=== PATIENT | female | born 1950 | race Caucasian/White ===

== ENCOUNTER → 2023-08-25 14:02 | Outpatient (REF) | payer MEDICARE, OTHER, SELFPAY | LOC: HWRAD 14:02 | PROVIDERS: ATTENDING PHYSICIAN Internal Medicine Critical Care Medicine; FAMILY PHYSICIAN Internal Medicine | DX: R91.1 Solitary pulmonary nodule (principal) | CPT/HCPCS: 71250 ==

== ENCOUNTER 2023-12-09 05:03 | Inpatient (IN) | payer MEDICARE, OTHER, SELFPAY ==
[2023-11-13 08:50] VITALS: BMI 24.9
[2023-11-13 09:32] LABS: % Basophils 0.8 % (0-2); % Immature Granulocytes 0.3 % (0-0.5); % Lymphocytes 34.3 % (20.5-51.1); % Monocytes 7.1 % (1.7-9.3); % Neutrophils 53.5 % (42.2-75.2); Absolute Eosinophils 0.1 10^3/uL (0-0.7); Absolute Lymphocytes 1.2 10^3/uL (1.2-3.4); Absolute Monocytes 0.3 10^3/uL (0.1-0.6); Absolute Neutrophils 1.9 10^3/uL (1.4-6.5); Hematocrit 36.6 % (37.0-47.0); Hemoglobin 12.3 g/dL (12.0-16.0); Mean Corp Hgb Conc. 33.6 g/dL (33.0-37.0); Mean Corpuscular Hgb 30.1 pg (27.0-31.0); Mean Corpuscular Volume 89.7 fL (81.0-99.0); Mean Platelet Volume 9.7 fL (7.4-10.4); Nucleated Red Blood Cells % 0 %; Platelet Count 287 10^3/uL (130-400); Red Blood Cell Count 4.08 10^6/uL (4.20-5.40); Red Cell Dist. Width 14.1 % (11.5-14.5); White Blood Cell Count 3.5 10^3/uL (4.8-10.8)
[2023-11-13 09:40] LABS: Urine Albumin Negative (Neg - Trace); Urine Bilirubin Negative (Negative); Urine Character Clear (Clear); Urine Color Yellow; Urine Glucose Negative (Negative); Urine Ketone Negative (Negative); Urine Leukocyte Negative (Negative); Urine Nitrite Negative (Negative); Urine Occult Blood Negative (Negative); Urine Specific Gravity 1.005 (<1.030); Urine Urobilinogen Negative (Neg - 1+)
[2023-11-13 09:48] LABS: INR 0.98; PT 12.8 Sec (11.4-14.6)
[2023-11-13 09:49] LABS: APTT 27.4 Sec (23.4-35.0)
[2023-11-13 10:26] LABS: Glycohemoglobin (HgbA1c) 5.3 % (4.0-5.6)
[2023-11-13 10:31] LABS: ALT (SGPT) 23 U/L (0-35); AST (SGOT) 26 U/L (14-36); Albumin 4.4 g/dl (3.5-5.0); Alkaline Phosphatase 110 U/L (38-126); Blood Urea Nitrogen 19 mg/dl (7-17); Calcium 10.1 mg/dl (8.4-10.2); Carbon Dioxide 27 mmol/L (22-30); Chloride 105 mmol/L (98-107); Direct Bilirubin 0.1 mg/dl (0.0-0.4); Estimated Creatinine Clearance 63 ml/min; Glucose 101 mg/dl (70-99); Potassium 4.3 mmol/L (3.5-5.1); Sodium 140 mmol/L (135-145); Total Bilirubin 0.3 mg/dl (0.2-1.3); Total Protein 6.6 g/dl (6.3-8.2); eGFR > 60.00
--- NOTE | 2023-11-13 10:50 | CM ---
CM met w/ patient during PATs for planned CT Surgery, 12/08.
Pt. resides alone in a private 1 story apartment. There are no steps to enter the home. Functionally, patient is indep. at baseline w/ ADLs, mobility without the use of any assisted device.
Reviewed pre and post op routines.
Soap, shower instructions and Lung booklet provided/ reviewed.
Reviewed post op restrictions to include lifting and driving restrictions.
Plan for CT Surgery 12/08.
Anticipated DC plan is for home with CT Transitional Care RN.
CM to follow.
[2023-12-09] VITALS (13 sets, daily range): BP systolic 106–149; BP diastolic 62–96; BMI 25.0
--- NOTE | 2023-12-09 06:28 | W.CVOR.SURPR ---
CVOR Surgeon Immed Pre Op
-
I have examined this patient prior to performance of the scheduled procedure.
The patient's condition is unchanged from the time of the dictated/written History and
Physical and the patient is able to undergo the scheduled procedure.
RATS WILLI Lingular Segmentectomy Possible Lobectomy with LN Dissection
[2023-12-09 08:07] LABS: Urine Albumin Negative (Neg - Trace); Urine Bilirubin Negative (Negative); Urine Glucose Negative (Negative); Urine Ketone Negative (Negative); Urine Leukocyte Negative (Negative); Urine Nitrite Negative (Negative); Urine Occult Blood Negative (Negative); Urine Urobilinogen Negative (Neg - 1+)
[2023-12-09 08:10] LABS: Urine Character Clear (Clear); Urine Color Yellow
--- NOTE | 2023-12-09 11:37 | W.PN.CT.SURG ---
CT Surgery Operative Note
-
THORACIC SURGERY OPERATIVE REPORT
Preoperative Diagnosis: WILLI Ground Glass Opacity
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
Procedure(s) Performed:
1. Robotic Assisted Thoracic Surgery (RATS) Left Upper Lobe Lingular Segmentectomy
2. Radical Lymph Node Dissection
3. Additional Margin of Staple Line
4. Intercostal Nerve Block (Bupivacaine mixture to intercostal spaces )
Date of Surgery: 12/09/23
Comorbidities:
1. WILLI Ground Glass Opacity
2. WILLI Cancer
3. Cardiac Murmur
4. Fibromyalgia
5. Basal Cell Carcinoma
6. Reynaud's Disease
7. Hiatal Hernia
8. GERD/Dysphagia
9. Trigeminal Neuralgia
10. DANDRE
11. Former Tobacco Abuser
Attending Surgeon: Luis Alfredo Gar MD, MS
Assistants: Bárbara Santana PA-C (present and necessary to family practice physician assistant, exchanging robotic instruments, retraction, suction, exposure, suture management, and wound closure under my direction)
Anesthesiology: Demetrio Jimenez MD and Shimon Finn CRNA
Scrub and Circulating RNs: Shobha Dill, RN, Juanito Adams, KARRIE
Anesthesia: Dual Lumen GETA
EBL: 100 cc
Products: None
Indication(s) for Procedures: This is a 72-year-old female with a groundglass opacity that was enlarging on serial imaging studies. It is concerning for possible malignancy. She underwent attempted endoluminal bronchoscopy, robotic assisted
however results were inconclusive. Due to the location of the mass, she was referred for thoracic surgery evaluation for possible diagnostic and therapeutic segmentectomy.
Findings: Overall lung tissue quality was acceptable, she had a nearly complete fissure between the left upper and lower lobes. There were no obvious intrathoracic lesions concerning for metachronous disease. The lingular segment was isolated and
revealed that there were 2 large branches feeding the segment S4 and S5 as well as a smaller branch more cephalad. The bronchus to the lingular segment was identified and test clamped revealing unobstructed flow to the remaining apical left upper
lobe segment and left lower lobe. After dividing the arterial supply to the lingular segment, ICG was given and firefly was used to visualize the perfusion lines. This in conjunction with the aeration lines, marked out the ligament or segment.
Intraoperative frozen section was performed and revealed possible bronchioloalveolar carcinoma, well-differentiated. Due to this and a close margin [although negative] additional margin was taken of approximate 1.5 to 2 cm with ink marking the
tumor side. Lymph nodes were taken sequentially as listed below. The raw staple line was reinforced with CoSeal. There was minimal air leak at the inclusion the case once extubated and good inflation of both the left upper and left lower lobe.
There is no significant loss of tidal volume while ventilated.
Specimen(s):
Station 9, x 2 nodes
Station 10, x 1 nodes
Station 11, x 1 nodes
Station 5, x 3 nodes
Station 6, x 2 nodes
Lingular Segment 4/5 of the left upper lobe
Additional margin of the staple line, blue arteaga the tumor site
Description of Procedure: The patient was taken to the operating room. Induction via general anesthesia with endotracheal intubation was performed and peripheral venous access and arterial monitoring were inserted. Their identity and procedure to be
performed were verified and they were positioned with the left side up on the operating table. The patient was then prepped and draped in a sterile fashion. A preoperative time-out was performed with all members of the team present. A Veress needle
was used to insufflate the chest after isolating the lung. An 8 mm port was placed in the midaxillary line at approximately the eighth intercostal space and confirmed to be intrathoracic without significant pulmonary injury. The chest was surveyed
for any evidence of metastatic disease. Patient tolerate insufflation without complication. 2 additional 12 mm trocars were placed on either side under camera guidance and a third 8 mm trocar was placed along the back. A 12 mm shipping assistant port was
placed in the 11th intercostal space above the insertion of the diaphragm. An intercostal nerve block was performed at intercostal spaces 5 through 8.
The thoracic cavity was inspected for evidence of metastatic disease. None was observed. We started with mobilization of the inferior pulmonary ligament. We worked our way clockwise dissecting out the hilum and harvest any lymph nodes identified.
At this point I dissected through the fissure tracing the basilar pulmonary artery. I identified the lingular segmental arterial supply and sequentially divided them with white load staplers. The pulmonary vein leading the lingular segment was
isolated and divided with a white load stapler. This left the remaining lingular bronchiole segment. This was divided with a green load stapler after performing a test clamp revealing undetected flow induration to the remaining apical segment of
the left upper lobe and remaining left lower lobe. At this point ICG was infused and under firefly guidance I was able to identify the perfusion lines of the lingular segment which was marked with bipolar cautery. Multiple loads of green staple
fires were performed marching along this line erring on the side of the needed remaining segment until the specimen was free. It was placed into a large specimen bag and extracted from the chest cavity and sent for intraoperative frozen section.
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 Although the margin was negative it was close within several millimeters and so an additional margin the staple line was taken of approximately 2
cm. Additional lymph nodes were taken as listed above. CoSeal was used to reinforce the staple lines and hilum. A single chest tube was placed over the apex and secured. After confirming hemostasis, the lung was fully inflated and all ports were
removed. Incisions were closed in 3 layers including the fascia, dermal, and epidermis. Additional local anesthesia was injected into all incision sites. The skin wound was cleansed and sealed with Dermabond glue.
All instrument, sponge, and needle counts were confirmed to be correct x 2 at the end of the operation. The patient was transferred to the cardiac intensive care unit extubated in critical but stable condition.
I, Dr. Luis Alfredo Gar, was present, scrubbed for, and performed all critical elements of this procedure.
Luis Alfredo Gar MD, MS
Cardiothoracic Surgeon
[facility]
This operative dictation was created using the [employer] dictation system. Please excuse any grammatical, typographical, or 'sound alike' errors
--- NOTE | 2023-12-09 12:20 | CON.INTV ---
Consultation
Consultation Request
Date/Time Consultation Requested: 12/09/2023
Date/Time Consultation Performed: 12/09/2023 - 1202
Requesting Provider: Dr. Gar
Performing Provider: Dr. Hernandez
Reason for Consultation: post-op WILLI RATS segmentectomy
Medical History
-
Chief Complaint: Elective WILLI resection
History of Present Illness:
72-year-old female former tobacco smoker with [id number]-odpr history (quit 1988) with a past medical history of multiple pulmonary nodules, herniated disc, history of basal cell carcinoma, mild DANDRE intolerant to CPAP in the past s/p discontinuation
(uses oral guard), shortness of breath on Spiriva (spirometry/PFT negative for obstructive lung disease), history of Raynaud's disease, history of pneumonia, history of PVCs, history of RLL TERESA via bronchoscopy in March 2023, nephrolithiasis,
hiatal hernia, GERD, and deviated septum s/p rhinoplasty who presents for left upper lobe robotic assisted segmentectomy. Patient follows with us at [facility] office with Dr. Katz, last office visit on 10/28/2023. Patient follows for multiple lung
nodules including a left upper lobe groundglass opacity, and a 8mm RLL nodule s/p robotic bronchoscopy on 03/23/2023 with TBNA + BAL of WILLI negative for malignancy, and RLL brushing and BAL negative as well for malignancy. Station 7 EBUS negative
for malignancy, however RLL BAL AFB Cx showed TERESA - no treatment started. She continued to follow-up with [facility] interventional pulmonology and underwent repeat biopsy which also was non-diagnostic. Patient then referred to cardiothoracic surgery
here at for resection. Last spirometry done on 09/08/2023 that was within normal limits without any restriction or obstructive defect (FEV1/FVC: 75 (99% predicted) with FVC: 89% / 2.22 L). Last full PFT in December 2022 showing significant
improvement in the small lung green, borderline bronchodilator response, with normal gas exchange capacity and no restriction or obstruction seen. Patient saw Dr. Gar in the office on 11/02/2021 for and surgical resection of WILLI was discussed
including its benefits versus risks. Patient agreed to procedure and today underwent robotic assisted thoracic surgery with left upper lobe lingular segmentectomy, with radical lymph node dissection. EBL was 100 cc, and patient was transferred to
the CVICU postoperatively with critical care services consulted for additional management/recommendations.
When I saw the patient she was in bed, in no acute distress with family members including daughter at bedside. Patient saturating 96% on room air, heart rate 76 and BP 144/65. Left pleural chest tube on waterseal with level 1�2 airleak only upon
strong expiration. She is tired, otherwise denies any SOB at rest, abdominal pain, nausea, fevers or chills.
PMHx: Left upper lobe groundglass opacity, pleurisy, glaucoma, cataracts, heart murmur, history of plantar fasciitis, Mian syndrome, right adrenal gland benign tumor, history of herpes, herniated disc, fibromyalgia, history of basal cell
carcinoma, history of pneumonia, spinal stenosis, right rotator and bicep tear, right Achilles tear, history of Raynaud's phenomenon, hair loss, kidney stones, history of syncope, hiatal hernia, GERD, vascular necrosis involving left shoulder/left
hip, history of trigeminal neuralgia, history of DANDRE (mild) not on CPAP, deviated septum s/p rhinoplasty
PSHx: Tubal ligation, rhinoplasty, exploratory surgery due to lump in jaw (1981), breast biopsy, hysteroscopy, trigger finger, bunionectomy, cholecystectomy, right rotator and right bicep tear surgery, cataract surgery, bilateral hip replacements,
tonsillectomy, endoscopy with Botox injection for motility disorder, lumbar spinal steroid injections
Past Medical History
Past Medical History: Other (Above as per HPI)
Past Surgical History: Other (Above as per HPI)
Social History
Tobacco: Former Smoker (1 PPD x 22 years, quit in 1988)
Alcohol: Occasional
Drug: None
Personal: Single
Living: Other (Condominium)
Employment: Employed (We will stay)
Environmental Exposures: No pets, hot tub or known mold exposure
Family History
Family History: CAD (Father), Cancer (Father: Prostate cancer; mother: Breast cancer, pancreatic cancer; Sister: History of non-melanoma skin cancer) and Other (Father of stroke/A-fib at age 90)
Allergies / Home Medications
Allergies
Allergy/AdvReac Type Severity Reaction Status Date / Time
acetaminophen [From Percocet] Allergy itching/diz Verified 11/09/23 13:32
ziness
díaz Allergy eyes Verified 11/09/23 13:32
water,
breathing
difficulty
gabapentin Allergy Tongue Verified 11/09/23 13:32
Swelling;
nausea
oxycodone [From Percocet] Allergy itching/diz Verified 11/09/23 13:32
ziness
perfume Allergy eyes Verified 11/09/23 13:32
water,
breathing
difficulty
pregabalin [From Lyrica] Allergy Unknown Verified 11/09/23 13:32
simvastatin Allergy numbness Verified 11/09/23 13:32
to arm
Home Medications
�Medication �Instructions �Recorded �Confirmed �Last Taken �Type
Centrex Multivitamin 1 tab PO DAILY 03/23/23 12/09/23 12/08/23 19:00 History
Immune Defense 1 tab PO DAILY 03/23/23 12/09/23 12/02/23 19:00 History
Nutrafol 1 dose PO DAILY 03/23/23 12/09/23 12/08/23 19:00 History
milnacipran 50 mg tablet (Savella) 50 mg PO DAILY 03/23/23 12/09/23 12/08/23 19:00 History
tiotropium bromide 18 mcg capsule 1 cap inhalation QPM 03/23/23 12/09/23 12/08/23 19:00 History
with inhalation device (Spiriva
with HandiHaler)
valacyclovir 500 mg tablet 500 mg PO QPM 03/23/23 12/09/23 12/02/23 History
(Valtrex)
cetirizine 10 mg tablet (Zyrtec) 10 mg PO DAILY 11/09/23 12/09/23 12/08/23 08:00 History
omeprazole 20 mg tablet,delayed 20 mg PO DAILY 11/09/23 12/09/23 12/08/23 08:00 History
release
Lyposomic Vit C 1 unit PO Q48H 11/11/23 12/09/23 12/07/23 08:00 History
Medical Marijuana 1 unit PO PRN PRN pain 11/11/23 12/09/23 12/23/22 History
Saccharomyces boulardii 250 mg 250 mg PO DAILY 11/11/23 12/09/23 12/02/23 History
capsule (Florastor)
ascorbic acid 1,000 1 ea PO Q48H 11/11/23 12/09/23 12/08/23 08:00 History
qs-utglvxyjectt-oprcxymn powder
effervescent pack (Emergen-C)
rosuvastatin 20 mg tablet 20 mg PO DAILY 11/11/23 12/09/23 11/27/23 History
Review of Systems
-
History Source: Patient
All other systems: Negative unless noted
Vitals / Labs / Diagnostic Testing
Vital Signs
Temp Pulse Resp BP Pulse Ox
97.6 F 81 16 149/77 99
12/09/23 05:53 12/09/23 05:53 12/09/23 05:53 12/09/23 05:53 12/09/23 05:53
Lab Data
11/13/23 09:02
11/13/23 09:02
Diagnostic Testing:
Physical Exam
-
HEENT: Normocephalic, Anicteric and Other (ETT in place)
Cardiovascular: S1/S2 and Peripheral Edema (Negative)
Respiratory: Wheeze (Negative), Rales (L-hemithorax), Rhonchi (Negative) and Non-Labored Respirations
GI: Soft, Non Distended, Non Tender and Normal Bowel Sounds
Neurology: Awake, Alert, Tremors (negative) and Other (drowsy but answering my questions appropriately)
Skin: Warm and Dry
General: Respiratory Distress (Negative), Comfortable, Fever (Negative) and Chills (Negative)
Assessment
-
Assessment: 72-year-old female former tobacco smoker with 45-dpjk-lhgg history (quit 1988) with a past medical history of multiple pulmonary nodules, herniated disc, history of basal cell carcinoma, mild DANDRE intolerant to CPAP in the past s/p
discontinuation (uses oral guard), shortness of breath on Spiriva (spirometry/PFT negative for obstructive lung disease), history of Raynaud's disease, history of pneumonia, history of PVCs, history of RLL TERESA via bronchoscopy in March 2023,
nephrolithiasis, hiatal hernia, GERD, and deviated septum s/p rhinoplasty who presents for left upper lobe robotic assisted segmentectomy. Patient follows with us at [facility] office with Dr. Katz, last office visit on 10/28/2023. Patient follows for
multiple lung nodules including a left upper lobe groundglass opacity, and a 8mm RLL nodule s/p robotic bronchoscopy on 03/23/2023 with TBNA + BAL of WILLI negative for malignancy, and RLL brushing and BAL negative as well for malignancy. Station 7
EBUS negative for malignancy, however RLL BAL AFB Cx showed TERESA - no treatment started. She continued to follow-up with [facility] and underwent repeat biopsy which also was non-diagnostic. Patient then referred to
cardiothoracic surgery here at for resection. Last spirometry done on 09/08/2023 that was within normal limits without any restriction or obstructive defect (FEV1/FVC: 75 (99% predicted) with FVC: 89% / 2.22 L). Last full PFT in December 2022
showing significant improvement in the small lung green, borderline bronchodilator response, with normal gas exchange capacity and no restriction or obstruction seen. Patient saw Dr. Gar in the office on 11/02/2021 for and surgical resection of WILLI
was discussed including its benefits versus risks. Patient agreed to procedure and today underwent robotic assisted thoracic surgery with left upper lobe lingular segmentectomy, with radical lymph node dissection. EBL was 100 cc, and patient was
transferred to the CVICU postoperatively with critical care services consulted for additional management/recommendations.
Chronic conditions DISCOVERY MANAGER: Left upper lobe groundglass opacity/multiple lung nodules, pleurisy, glaucoma, cataracts, heart murmur, history of plantar fasciitis, Conde syndrome, right adrenal gland benign tumor, history of herpes, herniated disc,
fibromyalgia, history of basal cell carcinoma, history of pneumonia, spinal stenosis, right rotator and bicep tear, right Achilles tear, history of Raynaud's phenomenon, hair loss, kidney stones, history of syncope, hiatal hernia, GERD, vascular
necrosis involving left shoulder/left hip, history of trigeminal neuralgia, history of DANDRE (mild) not on CPAP, deviated septum s/p rhinoplasty
Impression:
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
#Former tobacco smoker (16-[id number]-[id number] history, quit in 1988)
#Abnormal PFT with marked improvement in small lung green and borderline significant bronchodilator response, suspicious for reactive airway disease vs asthma (DLco: 89%; DLco/VA: 94%)
#Hx of RLL TERESA (03/2023)
#Leukopenia
#History of mild DANDRE intolerant to CPAP (discontinued, now on oral guard)
#Chronic dyspnea on Spiriva (significant bronchodilator response of small airway seen on PFTs, without obstructive lung defect seen, suspicious for RAD vs asthma)
#History of deviated septum s/p rhinoplasty
Plan:
Patient was already extubated by the time she reached the CVICU
Maintain SpO2 >88-94%
prn nebulized bronchodilators
Encourage incentive spirometer use
Continue with Spiriva with prn albuterol for SOB/wheezing
Maintain MAP>65
Replete electrolytes with K>4, Mg>2
Monitor chest tube output (left pleural - currently attached to CWS)
Monitor hemoglobin
Monitor platelet count and coags
Transfuse blood product if needed to keep Hb>7g/dL and plt>50k (give her post-operative status)
CT surgery managing chest tube
Monitor blood sugar to maintain euglycemia with goal BG 140-180
Insulin SQ supplementation as needed to maintain BG goal as above
Aspiration precautions
DVT prophylaxis
Early nutrition
Early mobilization
Patient follows with Dr. Katz as an outpatient with last visit on 10/28/2023. We will assure that patient sees Dr. Katz again as an outpatient for follow up.
Continue CVICU status in this post-operative patient. Once patient downgraded to CVICU�telemetry, Aircraft Body Repairer/Pulmonary service will sign off at that time. Thank you for allowing us to be involved in the care of this patient.
Total time spent today was 75 minutes for this encounter. Time includes reviewing laboratory test/imaging results, reviewing pertinent medical records, obtaining and reviewing medical history, performing an appropriate exam, ordering medications,
tests and procedures. Time also includes documentation of this encounter, coordinating patient care and communicating with other healthcare professionals. Total time does not include separately billed tests performed on this date of service.
[2023-12-09] MEDS: DILAUDID 0.5 MG IV (12:22)
[2023-12-09] MEDS: ANCEF 10 IV ×2 (13:28)
[2023-12-09] MEDS: TORADOL 15 MG IV (13:34)
[2023-12-09] MEDS: LOPRESSOR 12.5 MG PO ×2 (13:36→20:08)
--- NOTE | 2023-12-09 13:52 | PTCARENOTE ---
Received pt from PACU, VSS, Pt is AAOx3, RASS 0; NSR, B/P 140-160/60-70's, HR 70's, pulses palpable on all extremities, - edema; 4L NC, Resp 16, P/O 100% RA, lungs clear bilaterally, - lungs sounds WILLI, C/T L posterior to water seal, tidaling noted.
no crepitus, dressing C/D/I, I/S encouraged, + B/S throughout, abdomen soft, non-tender. three incision L anterior chest, surgical glue COLE; R rad A-line, 20g R AC, 18g L anterior forearm, plan of care discussed with pt including use of I/S
re-enforced.
[2023-12-09] MEDS: ULTRAM 50 MG PO (14:58)
[2023-12-09] MEDS: ANCEF 5 IV ×2 (15:23→21:44)
[2023-12-09] MEDS: TYLENOL PO (15:32)
--- NOTE | 2023-12-09 16:30 | PTCARENOTE ---
VSS, NSR, T - 98, P -74, R -18, B/P 129/72, P/O/ 96% RA; A-Line d/c'ed, Pt OOB to chair, Nursing assessment unchanged from prior.
[2023-12-09] MEDS: DILAUDID 2 MG PO (16:59)
[2023-12-09] MEDS: HEPARIN 5000 UNITS SC ×2 (17:19→23:24)
[2023-12-09] MEDS: VALTREX 500 MG PO (17:19)
--- NOTE | 2023-12-09 17:45 | PTCARENOTE ---
NSR, VSS, chest tube output WNL; pt voided 425ml of clear yellow urine; Nursing assessment unchanged from prior.
[2023-12-09] MEDS: SPIRIVA RESPIMAT 2.5 MCG 2 PUFF INH (19:20)
[2023-12-09] MEDS: SENOKOT 8.6 MG PO (20:08)
--- NOTE | 2023-12-09 21:00 | PTCARENOTE ---
Assumed care of pt from dayshift RN. Walking rounds completed. Pt AAOx3. SR on the monitor. HR 70s. BP stable. Palpable pulses throughout. No edema. Pt on RA. POX 99%. Posterior left upper back CT C/D/I. CT to water seal. Tidaling present. No
airleak/crepitus noted. Left upper lung sounds diminished. Left anterior chest incisions x3 approximated with surgical adhesive and COLE. Abdomen soft/nontender. +BS. Pt voiding in the bathroom w/o issue. Pt 1x assist out of the chair. PIVx2 C/D/I.
See worklist for full nursing assessment and interventions. Call browne within reach.
[2023-12-09] MEDS: NON-FORMULARY ITEM 50 MG PO (21:43)
[2023-12-09] MEDS: FLEXERIL 5 MG PO (21:44)
[2023-12-09] MEDS: TYLENOL 1000 MG PO (21:44)
--- NOTE | 2023-12-10 | PTCARENOTE ---
No acute changes in assessment. Pt SR on the monitor. HR 70s. BP stable. Pt on RA. POX 99%. Left pleural CT to water seal intact. Output WNL. No airleak/crepitus noted. Tidaling present. Pt repositioned in the chair. No c/o pain at this time. Call
browne within reach.
[2023-12-10 04:51] VITALS: BP 134/72
[2023-12-10] MEDS: ULTRAM 50 MG PO ×2 (04:52→11:43)
[2023-12-10 04:55] VITALS: BMI 25.5
[2023-12-10] MEDS: TYLENOL 1000 MG PO ×2 (05:13→13:34)
[2023-12-10] MEDS: ANCEF 5 IV (05:13)
[2023-12-10 05:15] LABS: Hematocrit 34.3 % (37.0-47.0); Hemoglobin 11.7 g/dL (12.0-16.0); Mean Corp Hgb Conc. 34.1 g/dL (33.0-37.0); Mean Corpuscular Hgb 30.6 pg (27.0-31.0); Mean Corpuscular Volume 89.8 fL (81.0-99.0); Mean Platelet Volume 10.3 fL (7.4-10.4); Platelet Count 245 10^3/uL (130-400); Red Blood Cell Count 3.82 10^6/uL (4.20-5.40); Red Cell Dist. Width 15.7 % (11.5-14.5); White Blood Cell Count 8.9 10^3/uL (4.8-10.8)
--- NOTE | 2023-12-10 05:22 | W.PN.CT ---
Today's Communication / Plan
-
-No issues overnight.
-CT output 215 for 12 hrs./ 275 since OR, no air leak
-maintain CT to waterseal.
-UO 1150 for 12 hrs./ 1575 since OR
-OOB/ISB
Assessment / Plan
-
s/p Robotic Assisted Thoracic Surgery (RATS) Left Upper Lobe Lingular Segmentectomy with Radical Lymph Node Dissection POD#1
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
-WILLI nodule
-MV prolapse with mild MR
-cushings sydrome s/p adrenal tumor resectin
-PNA
-osteoarthritis s/p b/l hip replacements
-fibromyalgia
-herniated discs
-spinal stenosis
-BCC
-Raynaud's
-GERD/dysphagia
-AVN of L shoulder/hip
-glaucoma
-herpes
Subjective
Procedure
s/p Robotic Assisted Thoracic Surgery (RATS) Left Upper Lobe Lingular Segmentectomy with Radical Lymph Node Dissection on 12/09/[address] Gar
-
Date of Service: December 10, 2023
Objective Data
-
Lab Results
12/10/23 05:02
PT 12.8 Sec (11.4-14.6) 11/13/23 09:02
INR 0.98 11/13/23 09:02
APTT 27.4 Sec (23.4-35.0) 11/13/23 09:02
Vital Signs
Vital Signs
Temp Pulse Resp BP Pulse Ox
97.5 F 75 18 134/72 96
12/10/23 04:51 12/10/23 04:51 12/10/23 04:51 12/10/23 04:51 12/10/23 04:51
CT Intake/Output/Weight
12/09/23 12/09/23 12/10/23
06:59 18:59 06:59
Intake Total 540 / 540
Output Total 480 / 1845 1365 / 1845
Balance 60 / -1305 -1365 / -1305
SaO2: 96
Physical Exam
-
General: AOx3
Cardiovascular: Regular rate & rhythm
Respiratory: Clear
Incision: Clean, Dry and Intact
Extremities: No Edema
--- NOTE | 2023-12-10 05:49 | PTCARENOTE ---
No acute changes in assessment. Pt remains SR on the monitor. HR 70-80s. BP stable. Pt remains on RA. Left pleural CT assessment unchanged from original. Surgical sites stable. Pt assisted out of the chair to the bathroom and then repositioned back
into the chair. Labs drawn and sent. See MAR for pain medication administration. Call browne within reach.
[2023-12-10 06:27] LABS: Blood Urea Nitrogen 13 mg/dl (7-17); Calcium 9.2 mg/dl (8.4-10.2); Carbon Dioxide 28 mmol/L (22-30); Chloride 104 mmol/L (98-107); Estimated Creatinine Clearance 63 ml/min; Glucose 121 mg/dl (70-99); Magnesium 2.3 mg/dl (1.6-2.3); Potassium 4.2 mmol/L (3.5-5.1); Sodium 136 mmol/L (135-145); eGFR > 60.00
--- NOTE | 2023-12-10 06:50 | W.PN.ANS.POP ---
Anesthesia Post Operative
- Anesthesia Post Op Note
Vital Signs Stable-See Nursing Note: Yes
Airway Patent: Yes
Adequate Pain Control: Yes
Change in Mental Status: No
Current Postoperative Nausea & Vomiting: No
Anesthesia Complications: No
General Anesthetic Recall: No
Unplanned Admission: No
Post Op Hydration Adequate: Yes
--- NOTE | 2023-12-10 08:00 | PTCARENOTE ---
Received pt from power and recovery shift engineer RN; pt AAOX3 and resting comfortably in chair; NSR on monitor and VSS; Lungs diminished; IS to 1000; CT x1 to water seal, no air leak and no crepitus noted; positive bowel sounds; pt voiding clear yellow urine; palpable
pulses throughout; no edema noted; all surgical sites C/D/I; see nursing documentation for further details.
[2023-12-10 08:03] VITALS: BP 124/62
[2023-12-10] MEDS: LIDOCAINE 4% PATCH 1 PATCH TOPICAL (08:14)
[2023-12-10] MEDS: ZYRTEC 10 MG PO (08:15)
[2023-12-10] MEDS: SENOKOT 8.6 MG PO (08:15)
[2023-12-10] MEDS: FLEXERIL 5 MG PO (08:15)
[2023-12-10] MEDS: HEPARIN 5000 UNITS SC (08:15)
[2023-12-10] MEDS: LOPRESSOR PO (08:19)
[2023-12-10] MEDS: PROTONIX 40 MG PO (08:20)
--- NOTE | 2023-12-10 09:30 | W.PN.INTV ---
Today's Communication / Plan
Recommendations
Up OOB as tolerated
Pain control
Resume Spiriva w/ prn albuterol
Removal of left-sided chest tube per CT surgery
Outpatient follow-up will be arranged with Dr. Katz, plan for this upcoming April
Patient is being prepared for discharge home today. Appointment Coordinator/Pulmonary service will now sign off. Please reconsult if there are any additional questions/concerns.
Assessment
-
Assessment: 72-year-old female former tobacco smoker with [id number] history (quit 1988) with a past medical history of multiple pulmonary nodules, herniated disc, history of basal cell carcinoma, mild DANDRE intolerant to CPAP in the past s/p
discontinuation (uses oral guard), shortness of breath on Spiriva (spirometry/PFT negative for obstructive lung disease), history of Raynaud's disease, history of pneumonia, history of PVCs, history of RLL TERESA via bronchoscopy in March 2023,
nephrolithiasis, hiatal hernia, GERD, and deviated septum s/p rhinoplasty who presents for left upper lobe robotic assisted segmentectomy. Patient follows with us at [facility] office with Dr. Katz, last office visit on 10/28/2023. Patient follows for
multiple lung nodules including a left upper lobe groundglass opacity, and a 8mm RLL nodule s/p robotic bronchoscopy on 03/23/2023 with TBNA + BAL of WILLI negative for malignancy, and RLL brushing and BAL negative as well for malignancy. Station 7
EBUS negative for malignancy, however RLL BAL AFB Cx showed TERESA - no treatment started. She continued to follow-up with [facility] interventional pulmonology and underwent repeat biopsy which also was non-diagnostic. Patient then referred to
cardiothoracic surgery here at for resection. Last spirometry done on 09/08/2023 that was within normal limits without any restriction or obstructive defect (FEV1/FVC: 75 (99% predicted) with FVC: 89% / 2.22 L). Last full PFT in December 2022
showing significant improvement in the small lung green, borderline bronchodilator response, with normal gas exchange capacity and no restriction or obstruction seen. Patient saw Dr. Gar in the office on 11/02/2021 for and surgical resection of WILLI
was discussed including its benefits versus risks. Patient agreed to procedure and today underwent robotic assisted thoracic surgery with left upper lobe lingular segmentectomy, with radical lymph node dissection. EBL was 100 cc, and patient was
transferred to the CVICU postoperatively with critical care services consulted for additional management/recommendations.
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
fibromyalgia, history of basal cell carcinoma, history of pneumonia, spinal stenosis, right rotator and bicep tear, right Achilles tear, history of Raynaud's phenomenon, hair loss, kidney stones, history of syncope, hiatal hernia, GERD, vascular
necrosis involving left shoulder/left hip, history of trigeminal neuralgia, history of DANDRE (mild) not on CPAP, deviated septum s/p rhinoplasty
Impression:
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
#Former tobacco smoker ([id number] history, quit in 1988)
#Abnormal PFT with marked improvement in small lung green and borderline significant bronchodilator response, suspicious for reactive airway disease vs asthma (DLco: 89%; DLco/VA: 94%)
#Hx of RLL TERESA (03/2023)
#Leukopenia - resolved (her WBC wa slow in November 2023)
#History of mild DANDRE intolerant to CPAP (discontinued, now on oral guard)
#Chronic dyspnea on Spiriva (significant bronchodilator response of small airway seen on PFTs, without obstructive lung defect seen, suspicious for RAD vs asthma)
#History of deviated septum s/p rhinoplasty
Plan:
Patient was already extubated yesterday prior to coming to CVICU
Maintain SpO2 >90-94%
prn nebulized bronchodilators
Encourage incentive spirometer use
Continue with Spiriva with prn albuterol for SOB/wheezing
Maintain MAP>65
Replete electrolytes with K>4, Mg>2
Monitor chest tube output (left pleural - currently attached to CWS - no air leak seen today) -removal of chest tube per CT surgery
Monitor hemoglobin
Monitor platelet count and coags
Transfuse blood product if needed to keep Hb>7g/dL and plt>50k (give her post-operative status)
CT surgery managing chest tube
Monitor blood sugar to maintain euglycemia with goal BG 140-180
Insulin SQ supplementation as needed to maintain BG goal as above
Aspiration precautions
DVT prophylaxis
Early nutrition
Early mobilization
Patient follows with Dr. Katz as an outpatient with last visit on 10/28/2023. We will assure that patient sees Dr. Katz again as an outpatient for follow up, planned for this April.
Patient is being prepared for discharge home today. Appointment Coordinator/Pulmonary service will now sign off. Thank you for allowing us to be involved in the care of this patient. Please reconsult if there are any additional questions/concerns.
Total time spent today was 35 minutes for this encounter. Time includes reviewing laboratory test/imaging results, reviewing pertinent medical records, obtaining and reviewing medical history, performing an appropriate exam, ordering medications,
tests and procedures. Time also includes documentation of this encounter, coordinating patient care and communicating with other healthcare professionals. Total time does not include separately billed tests performed on this date of service.
Subjective Dataa
Subjective Data
Date of Service:
Date of Service: December 10, 2023
Chief Complaint: Appointment Coordinator Follow Up and Pulmonary Follow Up
Subjective:
Patient seen and evaluated today at bedside. Heart rate 89, saturating 98% on room air and breathing comfortably. BP 124/62. Afebrile overnight. Left pleural chest tube in place with no airleak seen even upon expiration or cough. She feels
better today, denies chest pain, headache, SOB, fevers or chills.
Review of Systems
General: Other (Negative unless mentioned above)
Objective Data
Data Reviewed
Vital Signs / I&O / Oxygen:
Vital Signs
Temp Pulse Resp BP Pulse Ox
98.4 F 84 18 134/72 98
12/10/23 08:00 12/10/23 05:30 12/10/23 08:00 12/10/23 04:51 12/10/23 09:10
Intake and Output
12/09/23 12/10/23 12/11/23
06:59 06:59 06:59
Intake Total 540 / 540
Output Total 1845 / 1845 535 / 535
Balance -1305 / -1305 -535 / -535
SaO2 98
Nasal Cannula flow liters per 4
minute
Physical Exam
General: Respiratory Distress (Negative), Comfortable, Chills (Negative) and Sweats (Negative)
HEENT: Normocephalic and Anicteric
Cardiovascular: S1-S2 and Peripheral Edema (Negative)
Respiratory: Wheeze (Negative), Crackles (Mild heard on anterior left hemithorax during inspiration), Non-Labored Respirations and Chest Tube (left pleural x1)
GI: Soft, Non Distended, Non Tender and Normal Bowel Sounds
Neurology: AO x 3 and Tremors (Negative)
Skin: Warm, Dry and Jaundice (Negative)
Labs/Micro/Reports
Lab Data
12/10/23 05:02
12/10/23 05:33
--- NOTE | 2023-12-10 11:19 | CM ---
Chart reviewed. Patient OOB sitting int the chair. Patient requesting therapy dog to visit. Call placed to [employer] and they will let us know when the dog will be in to visit. Patient is independent of ADLS, lives alone in a 1 [address], 0
PETERS[place], 0 DME. Plan is for the patient to return home with CT Transitional RN. CM to follow
[2023-12-10 11:56] VITALS: BP 111/59
--- NOTE | 2023-12-10 12:17 | PTCARENOTE ---
Assessment unchanged; NSR on monitor and VSS; pt resting comfortably in chair and ambulating hallway with RN.
--- NOTE | 2023-12-10 13:38 | W.DCSUMMARY ---
Discharge Summary
Discharge Data
Date of Admission: 12/09/23
Date of Discharge: 12/10/23
-
Pending Results: Yes
Additional Pending Results:
surgical pathology is pending (12/09/23)
Hospital Course
Primary care physician: Sheri Pineda
Outpatient Manager Union: Nadia Katz
Inpatient consultants: MA/fireworks assembly supervisor
Procedures:
1. 12/09/23 robotic assisted Left upper lobe lingular segmentectomy + additional margin resection & radical lymph node dissection by Dr. Luis Alfredo Gar
Primary Diagnosis:
1. 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
Secondary Diagnoses:
1. mitral valve prolapse with mild mitral regurgitation
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
3. history of pneumonia
4. osteoarthritis status post bilateral hip replacements
5. fibromyalgia
6. herniated discs
7. spinal stenosis
8. basal cell carcinoma
9. raynaud's syndrome
10. gastroesophageal reflux disease/dysphagia
11. avascular necrosis of left shoulder/hip
12. glaucoma
13. herpes
HPI: Patient is a 72-year-old female with known left upper lobe mass, being followed by pulmonary, now increased in size with positive FDG uptake on most recent PET/CT. Biopsies earlier this year were nondiagnostic, decision was made to proceed
with mass resection for definitive diagnosis and therapeutic surgery.
Hospital course: She was brought in electively on 12/09/2023 where she went underwent a robotic assisted left upper lobe lingular segmentectomy with additional margin resection as well as radical lymph node dissection by Dr. Luis Alfredo Gar without any
periprocedural complications. She was transferred to PACU recovery, extubated in stable condition. Chest tube was in place without airleak and was converted to water seal shortly after surgery. Arterial line was discontinued subQ heparin was
started for DVT prophylaxis with a presumed diagnosis of bronchioloalveolar carcinoma on frozen section. She remained stable overnight on postop day 1 chest x-ray demonstrates a fully expanded lung with no pneumothorax. No air leak present on her
chest tube, patient is ambulating and chest tube was discontinued midday. She is voiding and pain is well-controlled on oral medication. She was discharged to home with close follow-up with the transitional care nurse for [facility] who
will see her in a few days. She will have a chest x-ray prior to her follow-up visit with Dr. Gar. Full surgical pathology is pending at this time.
Home medication changes: New prescription provided for Flexeril for pain control, and metoprolol tartrate 12.5 mg p.o. twice daily x 30 days for A-fib prophylaxis.
Discharge Plan
-
Patient Disposition: Home (Routine Discharge)
Discharge Diagnosis/Procedures: bronchopleural carcinoma
Condition: Good
Diet: No restrictions
Activity: No strenuous activity
Driving Restrictions: No driving for 2 weeks
Bathing Restrictions: OK to Shower
Others Tests: have chest xray completed prior to visit with Dr. Gar
Wound Care: Keep chest tube dressing intact x24hrs, then OK to shower. cover chest tube dressing area with dry dressings if needed for drainage.
Referrals:
CT Transitional Care Nurse [Outside] (The Cardiothoracic Transitional Care Nurse will call you to set up a visit in 1-2 days.)
Nadia Katz MD [Active] - (Follow up as previously scheduled in April 2024; sooner if needed; please call Pulmonary office if any questions.)
Sheri Pineda MD [Family Provider] -
Luis Alfredo Gar MD [Active] - 12/30/23 1:15 pm
Prescriptions:
New
metoprolol tartrate 25 mg Tablet
12.5 mg PO BID Qty: 30 0RF
Rx Instructions:
x30 days; for afib prophylaxis
acetaminophen 325 mg Tablet
650 mg PO Q6HPRN PRN (Reason: mild pain,headache,temp >101F ) Qty: 0 0RF
sennosides [Senna Laxative] 8.6 mg Tablet
8.6 mg PO BID PRN (Reason: Constipation) Qty: 0 0RF
lidocaine 4 % Adhesive Patch,Medicated
1 patch topical DAILY PRNQty: 0 0RF
cyclobenzaprine 10 mg Tablet
5 mg PO Q8HPRN PRN (Reason: muscle spasm) Qty: 20 0RF
Continued
valacyclovir [Valtrex] 500 mg Tablet
500 mg PO QPM
tiotropium bromide [Spiriva with HandiHaler] 18 mcg Capsule, W/Inhalation Device
1 cap INHALATION QPM
Savella 50 mg Tablet
50 mg PO DAILY
Centrex Multivitamin
1 tab PO DAILY
Nutrafol
1 dose PO DAILY
Immune Defense
1 tab PO DAILY
cetirizine [Zyrtec] 10 mg Tablet
10 mg PO DAILY
omeprazole 20 mg Tablet,Delayed Release (Dr/Ec)
20 mg PO DAILY
rosuvastatin 20 mg Tablet
20 mg PO DAILY
Saccharomyces boulardii [Florastor] 250 mg Capsule
250 mg PO DAILY
Emergen-C 1,000 mg Powder Effervescent In Packet
1 ea PO Q48H
Rx Instructions:
alternating days with Lyposomic Vit C
Medical Marijuana
1 unit PO PRN PRN (Reason: pain)
Rx Instructions:
Capsules, Oil and Lotion - No Vaping
Lyposomic Vit C 1,000 mg packet
1 unit PO Q48H
Rx Instructions:
alternate days from EmergenC
Discharge Orders:
Discharge Patient (As Directed); Ordered 12/10/23
Ordered By: Sarika Price
Care Plan Goals
Care Plan Goals:
Problem: Readiness for enhanced knowledge related to diagnosis and treatment plan
Goal: Understand your diagnosis and treatment plan needs, including medications if applicable.
Instructions: Know your diagnosis, underlying causes and treatment plan options, including medications if applicable. Consult with your health care team to learn about your diagnosis and treatment plan, including medications if applicable.
Discharge Date and Time
Print Language: LITHUANIAN
== END 2023-12-10 15:50 | disposition home or self-care (01) | DRG 164 ==
LOC: CVICU 05:03
PROVIDERS: Physician Assistant Medical; ADMITTING PHYSICIAN Thoracic Surgery (Cardiothoracic Vascular Surgery); FAMILY PHYSICIAN Internal Medicine; OTHER PHYSICIAN Internal Medicine Critical Care Medicine
PROC: 07T74ZZ Resection of Thorax Lymphatic, Percutaneous Endoscopic Approach (ICD-10-PCS; 2023-12-09)
PROC: 0BBG4ZZ Excision of Left Upper Lung Lobe, Percutaneous Endoscopic Approach (ICD-10-PCS; 2023-12-09)
DX: C34.12 Malignant neoplasm of upper lobe, left bronchus or lung (principal); E24.9 Cushing's syndrome, unspecified; G47.33 Obstructive sleep apnea (adult) (pediatric); K21.9 Gastro-esophageal reflux disease without esophagitis; K44.9 Diaphragmatic hernia without obstruction or gangrene; I73.00 Raynaud's syndrome without gangrene; I34.1 Nonrheumatic mitral (valve) prolapse; M79.7 Fibromyalgia; Z79.899 Other long term (current) drug therapy; Z85.828 Personal history of other malignant neoplasm of skin; Z87.01 Personal history of pneumonia (recurrent); Z87.891 Personal history of nicotine dependence
CPT/HCPCS: 88305; 88307; 88332; 32505; 36415; 71045; 80048; 80053; 81003; 82248; 83036; 83735; 85025; 85027; 85610; 85730; 86850; 86900; 86901; 86920; 87070; 88331; 93005; 93880; 94640

== ENCOUNTER → 2023-12-25 15:14 | Outpatient (REF) | payer MEDICARE, OTHER, SELFPAY | LOC: RAD 15:14 | PROVIDERS: ATTENDING PHYSICIAN Thoracic Surgery (Cardiothoracic Vascular Surgery); FAMILY PHYSICIAN Internal Medicine | DX: R91.8 Other nonspecific abnormal finding of lung field (principal) | CPT/HCPCS: 71046 ==

== ENCOUNTER → 2024-04-13 10:06 | Outpatient (REF) | payer MEDICARE, OTHER, SELFPAY | LOC: HWRAD 10:06 | PROVIDERS: ATTENDING PHYSICIAN Internal Medicine Critical Care Medicine; FAMILY PHYSICIAN Internal Medicine | DX: C34.92 Malignant neoplasm of unspecified part of left bronchus or lung (principal) | CPT/HCPCS: 71250 ==

== ENCOUNTER → 2024-05-20 08:55 | Outpatient (REF) | payer MEDICARE, OTHER, SELFPAY ==
--- NOTE | 2024-05-20 13:47 | OID.BR.INTR ---
[facility]SE[facility] Breast Navigator - Initial
- -
Date of Contact: 05/20/24
Met with patient. Patient given written information on navigator services available at [facility]. Will follow up as needed per protocol.
== END ==
LOC: WDC 08:55
PROVIDERS: ATTENDING PHYSICIAN Obstetrics & Gynecology Gynecology; FAMILY PHYSICIAN Internal Medicine
DX: N63.11 Unspecified lump in the right breast, upper outer quadrant (principal)
CPT/HCPCS: 88305; 19083; A4648

== ENCOUNTER → 2024-08-22 08:50 | Outpatient (REF) | payer MEDICARE, OTHER, SELFPAY | LOC: WDC 08:50 | PROVIDERS: ATTENDING PHYSICIAN Surgery | DX: C50.411 Malignant neoplasm of upper-outer quadrant of right female breast (principal) | CPT/HCPCS: 38792; 76942; A9541 ==

== ENCOUNTER 2024-08-23 10:01 | Inpatient (IN) | payer MEDICARE, OTHER, SELFPAY ==
[2024-08-10 11:25] LABS: Hematocrit 38.5 % (37.0-47.0); Hemoglobin 13.3 g/dL (12.0-16.0); Mean Corp Hgb Conc. 34.5 g/dL (33.0-37.0); Mean Corpuscular Hgb 32.9 pg (27.0-31.0); Mean Corpuscular Volume 95.3 fL (81.0-99.0); Mean Platelet Volume 10.3 fL (7.4-10.4); Platelet Count 225 10^3/uL (130-400); Red Blood Cell Count 4.04 10^6/uL (4.20-5.40); Red Cell Dist. Width 13.2 % (11.5-14.5); White Blood Cell Count 3.7 10^3/uL (4.8-10.8)
[2024-08-10 12:51] LABS: ALT (SGPT) 19 U/L (0-35); AST (SGOT) 23 U/L (14-36); Albumin 4.1 g/dl (3.5-5.0); Alkaline Phosphatase 64 U/L (38-126); Blood Urea Nitrogen 20 mg/dl (7-17); Carbon Dioxide 28 mmol/L (22-30); Chloride 104 mmol/L (98-107); Glucose 86 mg/dl (70-99); Potassium 4.3 mmol/L (3.5-5.1); Sodium 140 mmol/L (135-145); Total Bilirubin 0.7 mg/dl (0.2-1.3); Total Protein 6.3 g/dl (6.3-8.2); eGFR > 60.00
[2024-08-10 13:07] LABS: Prealbumin (Transthyretin) 25.2 mg/dl (17.6-36.0)
[2024-08-10 13:19] LABS: Vitamin D, 25-OH*** 91.8 ng/mL (30-80)
[2024-08-10 13:46] VITALS: BMI 25.2
[2024-08-23] VITALS (16 sets, daily range): BP systolic 15–162; BP diastolic 59–104; BMI 25.2
[2024-08-23] MEDS: EMEND 40 MG PO (10:32)
[2024-08-23] MEDS: TYLENOL 1000 MG PO (10:32)
[2024-08-23] MEDS: LOVENOX 40 MG SC (10:33)
[2024-08-23] MEDS: NORMOSOL-R/PLASMALYTE-A 1000 IV (10:43)
--- NOTE | 2024-08-23 11:27 | CHAP ---
Emotional and spiritual support provided. Prayed with Rossy and family member, Bhavana, prior to Rossy's surgery. Will follow after admission as well, at her request.
--- NOTE | 2024-08-23 17:31 | OR.RPT ---
Operative Report
Operative Report
Date of Procedure: 08/23/24
Surgeon: Jessica
Pre-Op DX: right breast ca
Post-Op DX: Right breast ca
Procedure: bilateral mastectomies, right sentinel lymph node mapping and biopsy
The patient is a 73-year-old female who had an image-detected favorable right breast carcinoma who presents for bilateral mastectomies, right sentinel lymph node mapping and biopsy. The patient declined a reconstructive consult.
On the day prior to the procedure, the patient presented to the [facility] and technetium radiotracer was injected into the right breast parenchyma. On the day of the procedure, the patient presented to same-day surgical services. She
was prepped and she verified site and procedure. DVT and antibiotic prophylaxis were provided and she was taken to the operating room. In the supine position general anesthesia was induced. Ocasio catheter was inserted using aseptic technique and
both breast and upper arms were prepped and draped in the usual sterile fashion. An appropriate timeout was performed by all staff members.
Attention was first turned to the left side where standard Jean incision was made using the blade. Skin flaps were elevated using the PlasmaBlade and a lighted retractor. Dissection was carried down to the chest wall and the breast was removed
taking it off the chest wall and a superior-medial to inferolateral direction. Time out of body was noted and the specimen was oriented for the pathologist and sent immediately for processing. The wound was irrigated and suction. A flat
Ronald-Raya drain was brought out through the inferior skin flap and secured to the skin with 2-0 nylon suture. Skin was closed using simple interrupted 3-0 plain subcutaneous tissue and a running subcuticular 4 Monocryl.
The right side was approached in the same fashion the breast was taken off oriented and sent for to the operating to the pathologist. This allowed entry into the axilla and the clavipectoral fascia was incised with the cautery. Using the neoprobe
gamma probe two sentinel node packets were encountered and excised. Feeding vessels were tied with 3-0 silk. Frozen section analysis was negative and after their removal, there was a greater than 4 fold reduction of background count. Hemostasis
was verified on this side and a similar drain was passed through the inferior skin flap and secured. The right incision was closed in the same manner as the left. Surgical glue and sterile compressive dressings were applied. All sponge needle and
instrument counts were correct and the patient was transferred to the recovery room in stable condition.
([id number], right [id number])
L[place] Node Bx Breast Cancer
[place] Node Bx Breast Cancer
Operation performed with curative intent: Yes
Tracer(s) to ID [place] Nodes in Non-Neoadjuvant setting: Radioactive Tracer
Tracer(s) to ID Sentinal Nodes in the Neoadjuvant Setting: N/A
All nodes at end of dye-filled Lymphatic Channel removed: N/A
All Significantly Radioactive Nodes were removed: Yes
All Palpably Suspicious Nodes were Removed: Yes
Bx Proven Pos Nodes Marked Prior to Chemo ID'd & Removed: N/A
[2024-08-23] MEDS: D5/0.45%NSS with KCL 20 MEQ 1000 IV (18:13)
--- NOTE | 2024-08-23 18:30 | PTCARENOTE ---
Received patient at 1830 from PACU. Patient AAOx3, no c/o pain, call browne in reach. B/L breasts dressings CDI, EMILY A, EMILY B intact and draining small amount of bloody drainage. Patient ordered soup for dinner, tolerating clear liquids at present.
[2024-08-23] MEDS: TYLENOL 500 MG PO (20:29)
[2024-08-23] MEDS: COLACE PO (20:32)
[2024-08-23] MEDS: DILAUDID 1 MG IV (23:46)
[2024-08-24 03:40] VITALS: BP 142/68
[2024-08-24 06:25] LABS: Hematocrit 32.2 % (37.0-47.0); Hemoglobin 11.3 g/dL (12.0-16.0)
[2024-08-24 06:49] LABS: Blood Urea Nitrogen 9 mg/dl (7-17); Calcium 8.7 mg/dl (8.4-10.2); Carbon Dioxide 23 mmol/L (22-30); Chloride 108 mmol/L (98-107); Estimated Creatinine Clearance 61 ml/min; Glucose 230 mg/dl (70-99); Sodium 139 mmol/L (135-145); eGFR > 60.00
[2024-08-24 07:25] VITALS: BP 132/62
[2024-08-24] MEDS: COLACE 100 MG PO (07:50)
[2024-08-24] MEDS: VALTREX 500 MG PO (07:50)
[2024-08-24] MEDS: PROTONIX 40 MG PO (07:50)
--- NOTE | 2024-08-24 10:37 | CM ---
Addendum entered by Gabrielle Tee RN 08/24/24 12:09:
[facility] has accepted patient.
PLAN: home with [facility].
Original Note:
Cm met with patient in room. Patient lives independently alone, but reports having multiple friends to assist. Patient denied history of VN< SNF or DME.
Patient is agreeable to [facility]. CM sent referral via [facility].
PLAN: home with [facility].
[2024-08-24] MEDS: TYLENOL 500 MG PO (10:58)
[2024-08-24 11:24] VITALS: BP 128/51
--- NOTE | 2024-08-24 12:23 | W.PN.UPDATE ---
Update Note
Progress Note Update
73 Y/O female S/P bilateral mastectomies and right sentinel node mapping and biopsy. She is doing well and has good pain control and has been ambulating. She tolerated PO intake well. She will be D/C today and will have VN visits. She has post op
appointment with me in 10 days. Final pathology report pending.
--- NOTE | 2024-08-25 10:20 | CM ---
ELÍAS faxed discharge instructions to Renuka lea [facility].
== END 2024-08-24 14:00 | disposition home or self-care (01) | DRG 581 ==
LOC: 2 SOUTH 10:01
PROVIDERS: ADMITTING PHYSICIAN Surgery; FAMILY PHYSICIAN Student in an Organized Health Care Education/Training Program
PROC: 0HTV0ZZ Resection of Bilateral Breast, Open Approach (ICD-10-PCS; 2024-08-23)
PROC: 07B50ZX Excision of Right Axillary Lymphatic, Open Approach, Diagnostic (ICD-10-PCS; 2024-08-23)
DX: C50.511 Malignant neoplasm of lower-outer quadrant of right female breast (principal); Z17.411 Hormone receptor positive with human epidermal growth factor receptor 2 negative status; N60.12 Diffuse cystic mastopathy of left breast
CPT/HCPCS: 88307; 88332; 36415; 38792; 76942; 80048; 80053; 82306; 84134; 85014; 85018; 85027; 88331; 88342; 93005; A4648; A9541

== ENCOUNTER → 2024-09-30 09:49 | Outpatient (REF) | payer MEDICARE, OTHER, SELFPAY | LOC: HWRAD 09:49 | PROVIDERS: ATTENDING PHYSICIAN Internal Medicine Critical Care Medicine; FAMILY PHYSICIAN Student in an Organized Health Care Education/Training Program | DX: C34.92 Malignant neoplasm of unspecified part of left bronchus or lung (principal) | CPT/HCPCS: 71250 ==

== ENCOUNTER → 2024-11-15 10:21 | Outpatient (REF) | payer MEDICARE, OTHER, SELFPAY | LOC: HWRAD 10:21 | PROVIDERS: ATTENDING PHYSICIAN Student in an Organized Health Care Education/Training Program | DX: R14.0 Abdominal distension (gaseous) (principal) | CPT/HCPCS: 76700 ==

== ENCOUNTER → 2024-11-18 12:21 | Outpatient (REF) | payer MEDICARE, OTHER, SELFPAY | LOC: RAD 12:21 | PROVIDERS: ATTENDING PHYSICIAN Student in an Organized Health Care Education/Training Program | DX: R19.00 Intra-abdominal and pelvic swelling, mass and lump, unspecified site (principal) | CPT/HCPCS: 74177; Q9967 ==

== ENCOUNTER → 2025-03-24 09:51 | Outpatient (REF) | payer MEDICARE, OTHER, SELFPAY | LOC: HWRAD 09:51 | PROVIDERS: ATTENDING PHYSICIAN Internal Medicine Critical Care Medicine; FAMILY PHYSICIAN Student in an Organized Health Care Education/Training Program | DX: C34.92 Malignant neoplasm of unspecified part of left bronchus or lung (principal) | CPT/HCPCS: 71250 ==